=== PATIENT | female | born 1995 | race Caucasian/White ===

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

== ENCOUNTER 2017-05-19 12:23 | Emergency (ER) | payer BC, MEDICAID ==
[2017-05-19] MEDS ORDERED: RINGERS SOLUTION,LACTATED 1,000 ML IV ONE (12:47)
--- NOTE | 2017-05-19 12:47 | ER Document Report ---
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 patient syncopal episode at the primary care doctor's office this morning. She does report she felt some chest discomfort at that time. TRAVEL OUTSIDE OF THE [place] IN LAST 30 DAYS: No - Related Data Allergies/Adverse Reactions: peanut [Peanut] Allergy (Severe, Verified 05/19/17 12:27) SOB,THROAT SWELLING, POSITIVE ON ALLERGY TEST sorbitol [Sorbitol] Allergy (Severe, Verified 05/19/17 12:27) PETIT MAL SEIZURE, VOMITING, DIARRHEA, LETHARGY fructose Allergy (Severe, Uncoded 03/11/16 15:42) PETIT MAL SEIZURE, VOMITING, DIARRHEA, LETHARGY SUCROSE Allergy (Severe, Uncoded 03/11/16 15:42) PETIT MAL SEIZURE, VOMITING, DIARRHEA, LETHARGY Past Medical History - Past Medical History Cardiac Medical History: Denies: Hx Coronary Artery Disease, Hx Heart Attack, Hx Hypertension Pulmonary Medical History: Denies: Hx Asthma, Hx Bronchitis, Hx COPD, Hx Pneumonia Neurological Medical History: Reports: Hx Seizures. Denies: Hx Cerebrovascular Accident Renal/ Medical History: Denies: Hx Peritoneal Dialysis Musculoskeltal Medical History: Denies Hx Arthritis Past Surgical History: Reports: Hx Oral Surgery. Denies: Hx Hysterectomy - Immunizations Immunizations up to date: Yes Hx Diphtheria, Pertussis, Tetanus Vaccination: Yes Physical Exam - Vital signs Vitals: Temp Pulse Resp BP Pulse Ox 98.4 F 75 14 117/74 100 05/19/17 12:29 05/19/17 12:29 05/19/17 12:29 05/19/17 12:29 05/19/17 12:29 Course - Vital Signs Vital signs: Temp Pulse Resp BP Pulse Ox 98.4 F 75 14 117/74 100 05/19/17 12:29 05/19/17 12:29 05/19/17 12:29 05/19/17 12:29 05/19/17 12:29
[2017-05-19 12:59] LABS: ABSOLUTE EOSINOPHILS # (AUTO) 0.1 10^3/uL (0.0-0.6); ABSOLUTE LYMPHOCYTES (AUTO) 1.6 10^3/uL (0.5-4.7); ABSOLUTE MONOCYTES (AUTO) 0.4 10^3/uL (0.1-1.4); ABSOLUTE NEUT (AUTO) 2.8 10^3/uL (1.7-8.2); BASOPHILS % (AUTO) 0.7 % (0-2); EOSINOPHILS % (AUTO) 2.4 % (0-6); HEMATOCRIT 44.1 % (36.0-47.0); HEMOGLOBIN 15.2 g/dL (12.0-15.5); LYMPHOCYTES % (AUTO) 31.6 % (13-45); MEAN CORPUSCULAR HEMOGLOBIN 28.6 pg (27.0-33.4); MEAN CORPUSCULAR HGB CONC 34.4 g/dL (32.0-36.0); MEAN CORPUSCULAR VOLUME 83 fl (80-97); PLATELET COUNT 292 10^3/uL (150-450); RED CELL DISTRIBUTION WIDTH 12.8 % (11.5-14.0); SEGMENTED NEUTROPHILS % (AUTO) 56.3 % (42-78); TOTAL CELLS COUNTED % (AUTO) 100 %; WHITE BLOOD COUNT 4.9 10^3/uL (4.0-10.5)
[2017-05-19 13:21] LABS: ALANINE AMINOTRANSFERASE 28 U/L (5-35); ALBUMIN 4.4 g/dL (3.7-5.6); ALKALINE PHOSPHATASE 71 U/L (50-135); ANION GAP 11 (5-19); ASPARTATE AMINO TRANSFERASE 22 U/L (5-30); BILIRUBIN,DIRECT 0.3 mg/dL (0.0-0.4); BILIRUBIN,TOTAL 0.5 mg/dL (0.2-1.3); BLOOD UREA NITROGEN 19 mg/dL (7-20); CALCIUM 9.7 mg/dL (8.4-10.2); CARBON DIOXIDE 24 mmol/L (22-30); CHLORIDE 105 mmol/L (98-107); GLUCOSE 74 mg/dL (75-110); POTASSIUM 4.2 mmol/L (3.6-5.0); SODIUM 140.1 mmol/L (137-145); TOTAL PROTEIN 7.3 g/dL (6.3-8.2)
--- NOTE | 2017-05-19 14:18 | ER Document Report ---
ED General - General Chief Complaint: Passed Out Prior to Arrival Stated Complaint: VOMITING Time Seen by Provider: 05/19/17 12:45 Mode of Arrival: Ambulatory Information source: Patient Notes: Patient is a 21-year-old female that presents today with nausea, vomiting, diarrhea starting yesterday. 5 bouts of vomiting, 3 bouts of diarrhea. No blood in the vomit or diarrhea. Patient currently denies any abdominal pain, dysuria, or fevers. Patient did have syncopal episode at the silo tender's office. Patient's sibling is in the room next to her with similar symptomatology. No recent trips out of the country. Patient prior to a syncopal episode states she had some mild intermittent chest discomfort. She denies any chest pain at this time. Patient does have a history of prolonged QT syndrome, as does her sister. - HPI Onset: Other - See above Onset/Duration: Gradual Quality of pain: Achy Severity: Mild Pain Level: Denies Associated symptoms: Other - See above Exacerbated by: Denies Relieved by: Denies Similar symptoms previously: No Recently seen / treated by doctor: Yes - Related Data Allergies/Adverse Reactions: peanut [Peanut] Allergy (Severe, Verified 05/19/17 12:27) SOB,THROAT SWELLING, POSITIVE ON ALLERGY TEST sorbitol [Sorbitol] Allergy (Severe, Verified 05/19/17 12:27) PETIT MAL SEIZURE, VOMITING, DIARRHEA, LETHARGY fructose Allergy (Severe, Uncoded 03/11/16 15:42) PETIT MAL SEIZURE, VOMITING, DIARRHEA, LETHARGY SUCROSE Allergy (Severe, Uncoded 03/11/16 15:42) PETIT MAL SEIZURE, VOMITING, DIARRHEA, LETHARGY Past Medical History - General Information source: Patient - Social History Smoking Status: Never Smoker Cigarette use (# per day): No Chew tobacco use (# tins/day): No Smoking Education Provided: No Family History: Reviewed & Not Pertinent, Other - Mother and another blood relative have prolonged QT syndrome, but patient has not been diagnosed with same. Has had workup. Patient has suicidal ideation: No Patient has homicidal ideation: No - Past Medical History Cardiac Medical History: Denies: Hx Coronary Artery Disease, Hx Heart Attack, Hx Hypertension Pulmonary Medical History: Denies: Hx Asthma, Hx Bronchitis, Hx COPD, Hx Pneumonia Neurological Medical History: Reports: Hx Seizures. Denies: Hx Cerebrovascular Accident Renal/ Medical History: Denies: Hx Peritoneal Dialysis Musculoskeltal Medical History: Denies Hx Arthritis Past Surgical History: Reports: Hx Oral Surgery. Denies: Hx Hysterectomy - Immunizations Immunizations up to date: Yes Hx Diphtheria, Pertussis, Tetanus Vaccination: Yes Review of Systems - Review of Systems Constitutional: denies: Fever EENT: denies: Eye discharge, Nose discharge Cardiovascular: denies: Palpitations Respiratory: denies: Short of breath Gastrointestinal: Diarrhea, Vomiting Genitourinary: denies: Dysuria Musculoskeletal: denies: Leg swelling Skin: Other - no hives. denies: Rash Neurological/Psychological: Other - no slurred speech -: Yes All other systems reviewed and negative Physical Exam - Vital signs Vitals: Temp Pulse Resp BP Pulse Ox 98.4 F 75 14 117/74 100 05/19/17 12:29 05/19/17 12:29 05/19/17 12:29 05/19/17 12:29 05/19/17 12:29 Notes: Reviewed vital signs and nursing note as charted by RN. CONSTITUTIONAL: Alert and oriented and responds appropriately to questions. Well -appearing; well-nourished HEAD: Normocephalic; atraumatic EYES: Sclerae non-icteric ENT: Moist mucous membranes; pharynx without lesions noted NECK: Supple without meningismus; non-tender CARD: Regular rate and rhythm; no murmurs RESP: Normal chest excursion without splinting or tachypnea; breath sounds clear and equal bilaterally ABD/GI: Normal bowel sounds; non-distended; soft, non-tender BACK: The back appears normal and is non-tender to palpation EXT: Normal ROM in all joints; non-tender to palpation; no edema SKIN: No acute lesions noted NEURO: Moves all extremities equally; Motor and sensory function intact PSYCH: The patient's mood and manner are appropriate. Grooming and personal hygiene are appropriate. Course - Re-evaluation Re-evalutation: = Given the above history and physical examination, we will order basic labs, magnesium level, EKG, place the patient on the monitor, and obtain a urine test. I do believe pulmonary embolism and aortic dissection to be unlikely. EKG shows a heart of 62, normal sinus rhythm, normal axis, normal QT interval, no ST elevation or depression. 05/19/17 14:18 Vital signs, EKG, labs and magnesium unremarkable. Patient is not . Patient denies any symptomatology at this time. Still no tenderness to repeat abdominal examination. If patient passes the p.o. challenge, patient will be discharged home with strict return precautions. - Vital Signs Vital signs: Temp Pulse Resp BP Pulse Ox 98.4 F 75 14 117/74 100 05/19/17 12:29 05/19/17 12:29 05/19/17 12:29 05/19/17 12:29 05/19/17 12:29 - Laboratory Result Diagrams: 05/19/17 12:45 05/19/17 12:45 Laboratory results interpreted by me: 05/19/17 05/19/17 12:45 12:45 RBC 5.30 H Glucose 74 L Discharge - Discharge Clinical Impression: Vomiting and diarrhea Syncope Qualifiers: Syncope type: unspecified Qualified Code(s): R55 - Syncope and collapse Condition: Good Disposition: HOME, SELF-CARE Additional Instructions: Come back immediately for any repeat vomiting or diarrhea, fevers, abdominal pain, chest pain, leg swelling, repeat syncopal episode, or any other acute problems. Please follow-up with the silo tender and attempt to stay well- hydrated as we have discussed.
[2017-05-19 15:22] VITALS: BP 108/55
--- NOTE | 2017-05-19 15:47 | EKG REPORT ---
SEVERITY:- NORMAL ECG - SINUS RHYTHM : Confirmed by: Maxwell Gee 19-May-2017 15:46:34
== END 2017-05-19 15:21 | disposition home or self-care (01) ==
LOC: ER 12:23
DX: R11.2 Nausea with vomiting, unspecified (principal); R19.7 Diarrhea, unspecified; R55 Syncope and collapse; R09.89 Other specified symptoms and signs involving the circulatory and respiratory systems; Z91.010 Allergy to peanuts; Z88.8 Allergy status to other drugs, medicaments and biological substances; Z86.79 Personal history of other diseases of the circulatory system
CPT/HCPCS: 93005; 99284; 96360; 36415; 84702; 83735; 85025; 80053; 93010; J7120

== ENCOUNTER 2018-10-14 16:55 | Emergency (ER) | payer BC ==
--- NOTE | 2018-10-14 18:51 | ER Document Report ---
ED Medical Screen (RME) - General Chief Complaint: Palpitations Stated Complaint: HEART PALPITATIONS/BACK PAIN/VOMITING/DIZZINESS Time Seen by Provider: 10/14/18 18:50 Mode of Arrival: Wheelchair Information source: Patient Notes: Patient is a 23-year-old female presents emergency department chief complaint of syncopal episode this morning at 3 AM, vomiting, diarrhea back pain. She also reports palpitations all day long. She reports history of vasovagal syncope, long QT syndrome and recently had a loop recorder placed into her left chest wall. She reports she sees cardiology in [place]. Exam: Heart sounds S1-S2 present with no ectopy noted. Lung sounds clear and equal bilaterally. I have greeted and performed a rapid initial assessment of this patient. A comprehensive ED assessment and evaluation of the patient, analysis of test results and completion of the medical decision making process will be conducted by additional ED providers. I have specifically instructed the patient or family members with the patient to immediately return to any nursing staff should anything change in the patient's condition or with their chief complaint. This medical record was dictated with voice recognizing software. There may be grammatical, syntax errors that are unintended. TRAVEL OUTSIDE OF THE [place] IN LAST 30 DAYS: No - Related Data Allergies/Adverse Reactions: peanut [Peanut] Allergy (Severe, Verified 10/14/18 18:52) SOB,THROAT SWELLING, POSITIVE ON ALLERGY TEST sorbitol [Sorbitol] Allergy (Severe, Verified 10/14/18 18:52) PETIT MAL SEIZURE, VOMITING, DIARRHEA, LETHARGY acetaminophen [From Vicodin] Allergy (Verified 10/14/18 18:52) hydrocodone [From Vicodin] Allergy (Verified 10/14/18 18:52) fructose Allergy (Severe, Uncoded 03/11/16 15:42) PETIT MAL SEIZURE, VOMITING, DIARRHEA, LETHARGY SUCROSE Allergy (Severe, Uncoded 03/11/16 15:42) PETIT MAL SEIZURE, VOMITING, DIARRHEA, LETHARGY Past Medical History - Past Medical History Cardiac Medical History: Denies: Hx Coronary Artery Disease, Hx Heart Attack, Hx Hypertension Pulmonary Medical History: Denies: Hx Asthma, Hx Bronchitis, Hx COPD, Hx Pneumonia Neurological Medical History: Reports: Hx Seizures. Denies: Hx Cerebrovascular Accident Renal/ Medical History: Denies: Hx Peritoneal Dialysis Musculoskeltal Medical History: Denies Hx Arthritis Past Surgical History: Reports: Hx Oral Surgery. Denies: Hx Hysterectomy - Immunizations Immunizations up to date: Yes Hx Diphtheria, Pertussis, Tetanus Vaccination: Yes Physical Exam - Vital signs Vitals: Temp Pulse Resp BP Pulse Ox 98.2 F 72 18 112/56 L 99 10/14/18 17:15 10/14/18 17:15 10/14/18 17:15 10/14/18 17:15 10/14/18 17:15 Course - Vital Signs Vital signs: Temp Pulse Resp BP Pulse Ox 98.2 F 72 18 112/56 L 99 10/14/18 17:15 10/14/18 17:15 10/14/18 17:15 10/14/18 17:15 10/14/18 17:15
--- NOTE | 2018-10-14 19:23 | RADIOLOGY REPORT (SQ) ---
EXAM DESCRIPTION: CHEST 2 VIEWS COMPLETED DATE/TIME: 10/14/2018 7:10 pm REASON FOR STUDY: +cardiac hx, palpitations COMPARISON: None. EXAM PARAMETERS: NUMBER OF VIEWS: two views TECHNIQUE: Digital Frontal and Lateral radiographic views of the chest acquired. RADIATION DOSE: NA LIMITATIONS: none FINDINGS: LUNGS AND PLEURA: No opacities, masses or pneumothorax. No pleural effusion. MEDIASTINUM AND HILAR STRUCTURES: No masses or contour abnormalities. HEART AND VASCULAR STRUCTURES: Heart normal size. No evidence for failure. BONES: No acute findings. HARDWARE: Loop recorder. OTHER: No other significant finding. IMPRESSION: NO ACUTE RADIOGRAPHIC FINDING IN THE CHEST. TECHNICAL DOCUMENTATION: JOB ID: [id number] [employer]- All Rights Reserved Reading location - IP/workstation name: [email or web address]
[2018-10-14 20:18] LABS: ABSOLUTE EOSINOPHILS # (AUTO) 0.3 10^3/uL (0.0-0.6); ABSOLUTE LYMPHOCYTES (AUTO) 2.6 10^3/uL (0.5-4.7); ABSOLUTE MONOCYTES (AUTO) 0.5 10^3/uL (0.1-1.4); BASOPHILS % (AUTO) 0.4 % (0-2); EOSINOPHILS % (AUTO) 4.5 % (0-6); HEMATOCRIT 41.2 % (36.0-47.0); HEMOGLOBIN 13.9 g/dL (12.0-15.5); LYMPHOCYTES % (AUTO) 34.4 % (13-45); MEAN CORPUSCULAR HEMOGLOBIN 28.5 pg (27.0-33.4); MEAN CORPUSCULAR HGB CONC 33.6 g/dL (32.0-36.0); MEAN CORPUSCULAR VOLUME 85 fl (80-97); MONOCYTES % (AUTO) 7.3 % (3-13); PLATELET COUNT 283 10^3/uL (150-450); RED BLOOD COUNT 4.87 10^6/uL (3.72-5.28); RED CELL DISTRIBUTION WIDTH 13.3 % (11.5-14.0); SEGMENTED NEUTROPHILS % (AUTO) 53.4 % (42-78); TOTAL CELLS COUNTED % (AUTO) 100 %; WHITE BLOOD COUNT 7.4 10^3/uL (4.0-10.5)
[2018-10-14 20:37] LABS: ALBUMIN 4.2 g/dL (3.5-5.0); ALKALINE PHOSPHATASE 58 U/L (38-126); ANION GAP 11 (5-19); ASPARTATE AMINO TRANSFERASE 22 U/L (14-36); BILIRUBIN,DIRECT 0.3 mg/dL (0.0-0.4); BILIRUBIN,TOTAL 0.6 mg/dL (0.2-1.3); BLOOD UREA NITROGEN 19 mg/dL (7-20); CALCIUM 8.9 mg/dL (8.4-10.2); CARBON DIOXIDE 23 mmol/L (22-30); CHLORIDE 104 mmol/L (98-107); CREATINE KINASE 91 U/L (30-135); GLUCOSE 85 mg/dL (75-110); POTASSIUM 4.1 mmol/L (3.6-5.0); TOTAL PROTEIN 6.8 g/dL (6.3-8.2)
[2018-10-14 20:47] LABS: CREATINE KINASE MB < 0.22 ng/mL (<4.55); TROPONIN I < 0.012 ng/mL
[2018-10-14] MEDS ORDERED: NORMAL SALINE 1000 ML 1,000 ML IV ONE (21:51)
--- NOTE | 2018-10-14 21:59 | ER Document Report ---
ED General - General Chief Complaint: Palpitations Stated Complaint: HEART PALPITATIONS/BACK PAIN/VOMITING/DIZZINESS Time Seen by Provider: 10/14/18 18:50 Mode of Arrival: Wheelchair Notes: 23-year-old female with history of prolonged QT syndrome causing recurrent syncope, hereditary fructose intolerance, osteopenia, chronic zoster infection presents to the emergency department for a syncopal episode at approximately 3 AM this morning. Patient states she woke up because she was feeling sick to her stomach, dizzy, lightheaded, was having heart palpitations, had persistent vomiting, diarrhea, then had a syncopal episode. Patient then woke up, continue to have palpitations, and vomited again. She went back to bed, woke up, went to urgent care where they referred her to the emergency department. She states th at her symptoms are mostly resolved but she has lingering left thoracic back pain that is constant and dull in nature. Patient had an internal event monitor placed by Dr. Stafford out of [place] approximately 2 weeks ago and, of note, she is being treated for a soft tissue infection with Keflex. Patient denies hitting her head this morning and mom confirmed that she was present. Mom is upset because they have been here for 5 hours am patient has not received any IV fluids yet. TRAVEL OUTSIDE OF THE [place] IN LAST 30 DAYS: No - Related Data Allergies/Adverse Reactions: peanut [Peanut] Allergy (Severe, Verified 10/14/18 18:52) SOB,THROAT SWELLING, POSITIVE ON ALLERGY TEST sorbitol [Sorbitol] Allergy (Severe, Verified 10/14/18 18:52) PETIT MAL SEIZURE, VOMITING, DIARRHEA, LETHARGY acetaminophen [From Vicodin] Allergy (Verified 10/14/18 18:52) hydrocodone [From Vicodin] Allergy (Verified 10/14/18 18:52) fructose Allergy (Severe, Uncoded 03/11/16 15:42) PETIT MAL SEIZURE, VOMITING, DIARRHEA, LETHARGY SUCROSE Allergy (Severe, Uncoded 03/11/16 15:42) PETIT MAL SEIZURE, VOMITING, DIARRHEA, LETHARGY Past Medical History - General Information source: Patient - Social History Smoking Status: Never Smoker Chew tobacco use (# tins/day): No Frequency of alcohol use: None Drug Abuse: None Family History: Reviewed & Not Pertinent, Other - Mother and another blood relative have prolonged QT syndrome, but patient has not been diagnosed with same. Has had workup. Patient has suicidal ideation: No Patient has homicidal ideation: No - Past Medical History Cardiac Medical History: Denies: Hx Coronary Artery Disease, Hx Heart Attack, Hx Hypertension Pulmonary Medical History: Denies: Hx Asthma, Hx Bronchitis, Hx COPD, Hx Pneumonia Neurological Medical History: Reports: Hx Seizures. Denies: Hx Cerebrovascular Accident Renal/ Medical History: Denies: Hx Peritoneal Dialysis Musculoskeletal Medical History: Denies Hx Arthritis Past Surgical History: Reports: Hx Cardiac Surgery - loop recorder placement x2, Hx Oral Surgery. Denies: Hx Hysterectomy - Immunizations Immunizations up to date: Yes Hx Diphtheria, Pertussis, Tetanus Vaccination: Yes Review of Systems - Review of Systems Constitutional: See HPI EENT: No symptoms reported Cardiovascular: See HPI Respiratory: See HPI Gastrointestinal: See HPI Genitourinary: No symptoms reported Female Genitourinary: No symptoms reported Musculoskeletal: No symptoms reported Skin: No symptoms reported Hematologic/Lymphatic: No symptoms reported Neurological/Psychological: See HPI Physical Exam - Vital signs Vitals: Temp Pulse Resp BP Pulse Ox 98.2 F 72 18 112/56 L 99 10/14/18 17:15 10/14/18 17:15 10/14/18 17:15 10/14/18 17:15 10/14/18 17:15 - Notes Notes: PHYSICAL EXAMINATION: Reviewed vital signs and charting by RN GENERAL: Alert, interacts well. No acute distress. HEAD: Normocephalic, atraumatic. EYES: Pupils equal and round. Extraocular movements intact. ENT: Oral mucosa moist, tongue midline. NECK: Full range of motion. Trachea midline. LUNGS: Clear to auscultation bilaterally, no wheezes, rales, or rhonchi. No respiratory distress. HEART: Regular rate and rhythm. No murmur ABDOMEN: soft, non-tender. No distention. Bowel sounds present EXTREMITIES: Moves all 4 extremities spontaneously. No edema, No cyanosis. PSYCH: Normal affect, normal mood. SKIN: Warm, dry, normal turgor. Small scar with a scab on it on the anterior left chest from the procedure healing well, no underlying erythema Course - Vital Signs Vital signs: Temp Pulse Resp BP Pulse Ox 98.2 F 72 17 112/56 L 99 10/14/18 17:15 10/14/18 17:15 10/14/18 19:38 10/14/18 17:15 10/14/18 19:38 - Laboratory Result Diagrams: 10/14/18 19:56 10/14/18 19:56 Discharge - Discharge Clinical Impression: Syncope Qualifiers: Syncope type: unspecified Qualified Code(s): R55 - Syncope and collapse Nausea and vomiting Qualifiers: Vomiting type: unspecified Vomiting Intractability: non-intractable Qualified Code(s): R11.2 - Nausea with vomiting, unspecified Condition: Good Disposition: HOME, SELF-CARE Additional Instructions: You were seen in the emergency department this evening for a syncopal episode, nausea, vomiting, diarrhea. I apologize for the delay in getting her fluids. Your work-up was very reassuring and the interrogation of your event monitor did not show any concerning tachyarrhythmias or bradycardia dysrhythmias since it is been placed. This is all very reassuring and the reason that you passed out is most likely due to the intractable vomiting that you have an early that this morning. Please follow-up with your primary doctor regarding today's ER visit. If you continue to have syncopal episodes, have intractable nausea or vomiting, have intractable diarrhea, or have any other concerning symptoms please immediately return to emergency department.
[2018-10-15] MEDS ORDERED: NORMAL SALINE 1000 ML 1,000 ML IV ONE (00:42)
[2018-10-15] MEDS ORDERED: IBUPROFEN 600 MG TABLET PO ONE (00:42)
[2018-10-15 02:22] VITALS: BP 107/63
== END 2018-10-15 02:29 | disposition home or self-care (01) ==
LOC: ER 16:55
DX: R55 Syncope and collapse (principal); R11.2 Nausea with vomiting, unspecified; R00.2 Palpitations; M54.9 Dorsalgia, unspecified; R42 Dizziness and giddiness
CPT/HCPCS: 36415; 82553; 82550; 85025; 80053; 84484; 71046; J7030